=== PATIENT | male | born 1940 | race Caucasian/White ===

== ENCOUNTER → 2017-02-09 | Outpatient (CLI) | payer OTHER ==
[~2017-02-09] MED LIST: ALLEGRA180 MG PO; ALTACE10 M1 PO; AMIODARONE PO; APAP500; APAP500 PO; ASPIRIN EC81 M1 PO; ASPIRIN325 PO; CENTRUM SILVER1 EAC1 PO; FERRO-TIME325 MG PO; GENTEAL OP; LIPITOR20 MG PO; NEXIUM PO; OMEGA-31000 MG PO; PROTONIX40 M2 PO; ZINC CHELATE15 MG PO
== END ==
LOC: RAD 11:53
DX: I48.0 Paroxysmal atrial fibrillation (principal)

== ENCOUNTER → 2017-09-03 | Outpatient (CLI) | payer OTHER ==
[~2017-09-03] MED LIST changes: +ALLER-EASE180 MG PO; -ALTACE10 M1 PO; +ALTACE10 MG PO; -AMIODARONE PO; -CENTRUM SILVER1 EAC1 PO; +CENTRUM SILVER1 EAC4 PO; +FLEXERIL PO; -GENTEAL OP; +GENTEAL TEARS1 EACH OPHTHALMIC; +LIPITOR 20 MG T20 M1 PO; +LYRICA100 MG PO; +PACERONE 200 M200 M1 PO; +TRAMADOL 50 MG50 MG PO; +ZINC30 MG PO
== END ==
LOC: RAD 11:40
DX: Z01.818 Encounter for other preprocedural examination (principal); I48.0 Paroxysmal atrial fibrillation

== ENCOUNTER 2017-09-17 05:30 | Day surgery (SDC) | payer OTHER ==
[~2017-09-17] VITALS: Ht 195.6 cm; Wt 102.5 kg
--- NOTE | ~2017-09-17 | O ---
[facility] [place] [address] OPERATIVE REPORT Name: THAD NATHAN Room #: [facility] Selene#: [id number] Admission: 09/17/17 Attend Phys: Sergio Salvador Discharge: 09/17/17 Date of : 36 Report #: [id number] THIS REPORT FOR: //name// CC: Edgardo Lopez DATE OF SERVICE: 09/17/2017 PREOPERATIVE DIAGNOSES: Left shoulder pain, massive rotator cuff tear, impingement syndrome, long head of biceps tendon subluxation. POSTOPERATIVE DIAGNOSES: Left shoulder massive rotator cuff tear, impingement syndrome, long head of biceps tendon tear and subluxation, complex labral tear, glenohumeral joint chondromalacia, impingement syndrome, subacromial bursitis. PROCEDURE PERFORMED: Left shoulder arthroscopy, massive rotator cuff repair, subacromial decompression, arthroscopic proximal biceps tenodesis, and extensive debridement. SURGEON: Sergio Lopez MD TRAFFIC CIRCUIT ENGINEER: Maris Cervantes/Maris Power PA-C, recent name change. FLUIDS: 600 mL crystalloid. ESTIMATED BLOOD LOSS: 5 mL. DESCRIPTION OF PROCEDURE: After proper identification of the patient and operative site in preoperative holding area, the operative site was signed by myself. Prophylactic antibiotics given. The patient discussed the risks, benefits, alternatives and potential complications of an interscalene block with anesthesia. After this discussion, he wished to proceed and Anesthesia performed an ultrasound interscalene block. After this was performed, he was brought back to the operative suite after induction of satisfactory general endotracheal anesthesia, left shoulder was examined. It was stable throughout full arc of motion comparable to the preoperative assessment. The patient was then carefully positioned in the right lateral decubitus position with beanbag and axillary roll utilized to support the torso. The left shoulder was sterilely prepped and draped in usual manner and placed in 10 pounds balanced arthroscopic suspension. Posterior portal was established, joint was inflated with an arthroscopic pump set at 40 mmHg. Anterior superior portal was then created using a spinal needle for localization. There was a long head biceps tendon tearing and subluxation medially, there was an upper border tear of the subscapularis. The frayed portion of the subscapularis was debrided and the remaining more inferior portion was intact, but for the frayed subscapularis, demonstrated no quality tissue to repair. Complex labral tear of the posterior [address] [address] OPERATIVE REPORT Name: THAD NATHAN Payam Room #: [facility] Selene#: [id number] Admission: 09/17/17 Attend Phys: Sergio Salvador Discharge: 09/17/17 Date of : 38 Report #: [id number] superior, anterior superior extending into the more posterior inferior quadrants were noted. These were debrided with a motorized shaver back to a stable peripheral rim. Tendon grafting stitch was placed on the long head of biceps tendon that was released off the superior labrum and remaining frayed labrum was carefully debrided. There were degenerative changes noted along the more inferior aspect of the glenohumeral joint with spurring and chondral loss noted inferiorly. There was also evidence of rotator cuff tear involving the entire supraspinatus extending back into the infraspinatus in more of a longitudinal type split. At this point, the arthroscope was introduced into more of the subacromial space. Additional anterolateral and posterolateral portals were established and on examination of the rotator cuff tear, the patient had retracted L-shaped tear with longitudinal extension into the infraspinatus. The more posterior aspect of this tear could be reduced, but anteriorly, he had significant tightness requiring an anterior interval slide. Capsule was released along the articular surface of the cuff and any adhesed thickened bursal tissue was released superiorly. Thickened subacromial bursa was noted, this was resected to aid in visualization purposes. There was fraying on the undersurface of the coracoacromial arch and the prominence to the anterolateral acromion was removed with a motorized bur completing the subacromial decompression. The CA ligament was left intact, but just released off the bony edge. After release of the more anterior interval type tissues, the anterior leading edge of the supraspinatus could be brought back down. Greater tuberosity was prepared with a sharper end curette and motorized shaver. An additional portal off lateral border of the acromion was planned and created. Frayed portion of the cuff was carefully debrided. At this point, two 4.75 mm SwiveLock anchors were inserted off the articular margin along the more medial aspect of the tuberosity. Suture limbs were passed in more of margin convergence manner within the infraspinatus-type tear and then in a horizontal mattress fashion as this extended into the supraspinatus. This was not a water-tight closure with the anterior leading edge, the supraspinatus having been released into the rotator interval as well as the superior aspect of the subscapularis. Once these sutures were tied, an additional 4.75 mm SwiveLock anchor was used to create a double row of fixation as the more laterally based anchor, the repair construct was stable to probing. The biceps tendon was pulled out the anterolateral portal and a whipstitch was applied. It was tenodesed to the bicipital groove using Arthrex proximal biceps tenodesis button through a predrilled hole. The button engaged the cortex, was toggled, and the tendon laid nicely down within the groove. This was then tied using #2 FiberWire. Subacromial space thoroughly irrigated with normal saline, subacromial depression had been performed with a motorized bur. The portals were closed with simple nylon stitch. The patient will be immobilized in a sling and abduction pillow for 8 weeks postoperatively. A qualified recruiting assistant was utilized throughout the entire procedure to aid in patient limb [address] [address] OPERATIVE REPORT Name: THAD NATHAN Room #: [facility] Selene#: [id number] Admission: 09/17/17 Attend Phys: Sergio Salvador Discharge: 09/17/17 Date of : 38 Report #: [id number] positioning, visualization with the arthroscope, instrument and suture passage as well as closure and sling application. <ELECTRONICALLY SIGNED> By: Sergio Lopez MD 09/22/17 0742 1359 1745 Sergio Lopez MD /nt
[2017-09-17 10:46] VITALS: BP 166/63
[2017-09-17 14:19] VITALS: BP 166/63
== END 2017-09-17 15:00 | disposition home or self-care (01) ==
LOC: OR 05:30 → TBA 05:30 → OR 13:24
DX: M75.122 Complete rotator cuff tear or rupture of left shoulder, not specified as traumatic (principal); S43.432A Superior glenoid labrum lesion of left shoulder, initial encounter; S46.112A Strain of muscle, fascia and tendon of long head of biceps, left arm, initial encounter; M75.42 Impingement syndrome of left shoulder; M94.212 Chondromalacia, left shoulder; M75.52 Bursitis of left shoulder; I10 Essential (primary) hypertension; E78.00 Pure hypercholesterolemia, unspecified; I48.91 Unspecified atrial fibrillation; K21.9 Gastro-esophageal reflux disease without esophagitis; Z98.890 Other specified postprocedural states; Z98.41 Cataract extraction status, right eye; Z98.42 Cataract extraction status, left eye; Z96.1 Presence of intraocular lens; Z87.19 Personal history of other diseases of the digestive system; Z79.899 Other long term (current) drug therapy; Y92.89 Other specified places as the place of occurrence of the external cause; X58.XXXA Exposure to other specified factors, initial encounter; Y93.89 Activity, other specified; Y99.8 Other external cause status
CPT/HCPCS: 50010; 50101; 50172; 50386; 50404; 50597; 50935; 50950; 51038; 51445; 51847; 53610; 54170; 55430; 56527; 56530; 62110; 62900; 70005

== ENCOUNTER → 2017-10-25 | Outpatient (CLI) | payer OTHER | LOC: MRI 09:50 | DX: R60.0 Localized edema (principal); I48.91 Unspecified atrial fibrillation ==

== ENCOUNTER → 2018-04-07 | Outpatient (CLI) | payer OTHER | LOC: RAD 14:11 | DX: M47.814 Spondylosis without myelopathy or radiculopathy, thoracic region (principal); I10 Essential (primary) hypertension; I48.91 Unspecified atrial fibrillation; E78.00 Pure hypercholesterolemia, unspecified; Z79.899 Other long term (current) drug therapy ==

== ENCOUNTER 2018-11-02 15:45 | Inpatient (IN) | payer OTHER ==
[~2018-11-02] VITALS: Ht 195.6 cm; Wt 112.5 kg
--- NOTE | ~2018-11-02 | HC ---
[facility] [address] [place] [address] CONSULTATION Name: THAD NATHAN Room #: 218-P ADM IN M.R.#: [id number] Admission: 11/02/18 ������������������ Attend Phys: Keith Weaver Discharge: ������������������ Date of : 38 Report #: [id number] THIS REPORT FOR: //name// CC: Edgardo Persaud REASON FOR CONSULTATION: Shortness of breath. HISTORY OF PRESENT ILLNESS: The patient is an 78-year-old gentleman with history of paroxysmal atrial fibrillation with remote cardioversion, symptomatic multifocal premature ventricular complexes, both rhythm disturbances of which have been suppressed with low dose amiodarone. I saw the patient in the office about 2 weeks ago and he was doing well. No chest pain, shortness of breath, palpitations, near syncope or syncope. He called the office yesterday afternoon with complaints of exertional breathlessness and terrible fatigue. He thought that he was back in atrial fibrillation. He was seen in the office at which time a sinus rhythm was identified. He was severely orthostatic and was referred to the Emergency Department. His Emergency Room evaluation is notable for a white count of 52,000, severe anemia and a platelet count of 12. Hematologic evaluation is underway. He does report occasional minor nosebleeds over the past couple of days. No history of GI bleeding. He reports no reason specifically why he would be volume depleted or dehydrated. He has an intolerance to beta blockade. MEDICATIONS: Include amiodarone 200 mg daily, atorvastatin 40 mg daily, eyedrops, Flexeril, iron one tablet daily, Protonix 40 mg daily, Lyrica 100 mg twice daily and ramipril 10 mg daily. 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 SOCIAL HISTORY: She has never been a smoker. . FAMILY HISTORY: Unremarkable for premature coronary disease. Mother had diabetes. REVIEW OF SYSTEMS: All systems negative except as that noted above. PHYSICAL EXAMINATION: GENERAL: A pleasant gentleman who is alert and in no distress. VITAL SIGNS: Blood pressure is 140/60, heart rate of 90 and regular. He is afebrile, 6 feet 5 inches tall, 246 pounds. HEENT: There are neither xanthelasma, subcutaneous xanthomata, oral mucosal or digital cyanosis or kyphoscoliosis present. [facility] [address] [place] [address] CONSULTATION Name: THAD NATHAN Room #: 218-P [facility] IN [facility]#: [id number] Admission: 11/02/18 ������������������ Attend Phys: Keith Weaver Discharge: ������������������ Date of : 38 Report #: [id number] CHEST: Clear to auscultation and percussion. CARDIOVASCULAR: Regular rate and rhythm with normal S1, S2. ABDOMEN: Soft and nontender. EXTREMITIES: Without cyanosis, clubbing or edema. Radial pulses are 2+. NEUROLOGIC: He is alert with a nonfocal exam. LABORATORY DATA: Sodium 138, potassium 4.0, creatinine 2.3, uric acid 10.2, troponin 0, ProBNP of 538. Chest x-ray is normal. IMPRESSION: 1. Leukocytosis, thrombocytopenia, and severe anemia. 2. Dilated, nonischemic cardiomyopathy. 3. Aortic stenosis, mild. 4. Acute kidney injury. 5. Paroxysmal atrial fibrillation without recurrence. 6. History of gastrointestinal arteriovenous malformations with remote 8 unit gastrointestinal bleed. 7. Dyslipidemia. RECOMMENDATIONS: Hematology consultation; bone marrow biopsy. PLAN: 1. Abbreviated echo to exclude pericardial effusion. 2. Continue low dose amiodarone. 3. Hold ALANNA inhibitor for now. Thank you for asking me to participate in the patient's care. ��������������������������������������������� ���������������������������������������� By: ��������������������������������������������� 0752 1214 Lexa Mohan MD, [facility] /nt
[2018-11-02 15:51] VITALS: BP 118/52
[2018-11-02] MEDS ORDERED: PRESERVISION T1 EACH PO (16:10)
[2018-11-02] MEDS ORDERED: RAMIPRIL10 MG PO (16:12)
[2018-11-02 16:15] LABS: HEMATOCRIT 34.9 % (42.0-52.0); HEMOGLOBIN 11.5 gm/dL (14.0-18.0); MCH 31.3 pg (26.0-34.0); MCHC 32.8 g/dL (28.0-37.0); MCV 95.5 fL (80.0-100.0); RBC 3.66 mil/uL (4.50-6.00); RDW 16.8 % (10.5-14.5)
[2018-11-02 16:22] LABS: WBC 52.7 thou/uL (4.0-11.0)
[2018-11-02 16:26] LABS: ANION GAP 15 mmol/L (7-16); BUN 53 mg/dL (7-18); CALCIUM 8.9 mg/dL (8.5-10.1); CHLORIDE 100 mmol/L (98-107); CO2 20 mmol/L (21-32); CREATININE 2.3 mg/dL (0.7-1.3); GLUCOSE 130 mg/dL (74-106); POTASSIUM 4.1 mmol/L (3.5-5.1); SODIUM 135 mmol/L (136-145)
[2018-11-02 16:34] LABS: ALBUMIN 4.3 g/dL (3.4-5.0); SGOT 44 U/L (15-37); SGPT 28 U/L (30-65); TOTAL BILIRUBIN 1.7 mg/dL (<0.1-1.0); TOTAL PROTEIN 7.7 g/dL (6.4-8.2); TROPONIN-I <0.06 ng/mL (<0.06)
[2018-11-02 16:53] LABS: ABSOLUTE NEUTROPHILS 29.5 thou/uL (1.4-8.2); ANISOCYTOSIS 2+; ATYPICAL LYMPHS 2 %; ATYPICAL MONONUCLEARS 1 %; METAMYELOCYTES 3 %; MYELOCYTES 2 %; NUCLEATED RBCS 2 /100WBC; PROMYELOCYTES 1 %
[2018-11-02 16:54] LABS: LARGE PLATELETS SEVERAL
[2018-11-02 16:55] LABS: POLYCHROMASIA SLIGHT
[2018-11-02 16:57] LABS: PLATELET COUNT 13 thou/uL (150-400)
[2018-11-02 16:59] LABS: PHOSPHORUS 4.4 mg/dL (2.5-4.9)
[2018-11-02 17:19] LABS: APTT 36.2 Seconds (24.5-32.8); INR 1.2; PROTIME 12.6 Seconds (9.3-11.4)
[2018-11-02 17:32] LABS: D-DIMER 3.41 ug/mLFEU (0.19-0.50)
[2018-11-02 18:26] VITALS: BP 153/57
[2018-11-02 19:46] VITALS: BP 153/57
[2018-11-02 19:49] LABS: URINE BILIRUBIN NEGATIVE (Negative); URINE BLOOD 1+ (Negative); URINE CLARITY CLEAR; URINE COLOR YELLOW; URINE GLUCOSE-RANDOM* NEGATIVE (Negative); URINE KETONES NEGATIVE (Negative); URINE LEUKOCYTES-REFLEX NEGATIVE (Negative); URINE NITRITE-REFLEX NEGATIVE (Negative); URINE PROTEIN (DIPSTICK) NEGATIVE (Negative); URINE UROBILINOGEN 0.2 E.U./dl (0.2-1.0)
[2018-11-02 19:57] VITALS: BP 147/61
[2018-11-02 20:02] LABS: BACTERIA-REFLEX >30 Many /HPF (None Seen); CRYSTALS None Seen /LPF (None Seen); HYALINE CASTS 0-3 Few /LPF (None Seen); SQUAMOUS 0-3 Few /LPF (0-3)
[2018-11-02 20:03] LABS: URINE RBC 0-2 Rare /HPF (0-2); URINE WBC-REFLEX None Seen /HPF (0-5)
--- NOTE | 2018-11-03 00:10 | NUR ---
19:55>ADMITTED MED SURG PATIENT FROM ER AN 78 Y/M WITH COMPLAINT OF WEAKNESS, DIZZINESS AND SOA WHICH ALL BEGAN 3-4 DAYS AGO AND SINCE HAVE PERSISTED CONSTANTLY. HE ALSO COMPLAINED OF DECREASED APPETITE AND HAD 2X NOSEBLEED WITHIN THE LAST SEVERAL DAYS BUT BOTH HAVE RESOLVED. DENIES FEVER, CHILLS, COUGH, N/V/D. PT VERBALIZED HX OF BILATERAL FOOT NEUROPATHY. ASSESSMENT DOCUMENTED. ADMISSION CARE DONE. DR DAS CALLED AND WAS ABLE TO TALK TO POPULATION HEALTH MANAGER RAUL, WITH ORDERS GIVEN AND CARRIED OUT. PATIENT IS FOR IR BONE MARROW BIOPSY IN AM. IV INCREASED FROM 100 ML/HR TO 150 ML/HOUR ORDERED. FF UP POC.
[2018-11-03 04:06] VITALS: BP 140/61
[2018-11-03 04:33] LABS: HEMOGLOBIN 9.6 gm/dL (14.0-18.0)
--- NOTE | 2018-11-03 04:34 | NUR ---
COORDINATED WITH GILMA OF RADIOLOGY(CT) AND ROBIN OF LAB REGARDING THE SCHEDULED IR BONE MARROW BIOPSY.
[2018-11-03 04:35] LABS: HEMATOCRIT 29.5 % (42.0-52.0); MCH 31.4 pg (26.0-34.0); MCHC 32.7 g/dL (28.0-37.0); RBC 3.07 mil/uL (4.50-6.00)
[2018-11-03 04:37] LABS: PLATELET COUNT 12 thou/uL (150-400); WBC 40.4 thou/uL (4.0-11.0)
[2018-11-03 04:51] LABS: ALBUMIN 3.3 g/dL (3.4-5.0); CREATININE 1.7 mg/dL (0.7-1.3); TOTAL BILIRUBIN 1.8 mg/dL (<0.1-1.0); TOTAL PROTEIN 5.8 g/dL (6.4-8.2); URIC ACID* 10.2 mg/dL (2.6-7.2)
[2018-11-03 06:46] LABS: ABSOLUTE NEUTROPHILS 20.2 thou/uL (1.4-8.2); METAMYELOCYTES 5 %; MYELOCYTES 6 %
[2018-11-03 06:51] LABS: ANISOCYTOSIS 1+; POLYCHROMASIA SLIGHT
[2018-11-03 06:53] LABS: NUCLEATED RBCS 2 /100WBC
[2018-11-03 06:54] LABS: IMMATURE MONONUCLEARS 1 %
[2018-11-03 08:00] VITALS: BP 141/65
--- NOTE | 2018-11-03 08:32 | EKG ---
[address] [employer] [place] [address] ELECTROCARDIOGRAM REPORT Name: LEE NATHANTreasure Hare Room #: 218-P ADM IN M.R.#: [id number] ������������������ Admission: 11/02/18 ������������������ Attend Phys: Keith Weaver Discharge: ������������������ Date of : 38 Report #: [id number] ����������������������������������������������������������������� [id number] THIS REPORT FOR: //name// [facility] ED Test Date: 2018-11-02 Test Time: 16:32:12 Pat Name: THAD NATHAN Department: Room: 218 Gender: M Behavioral Health Director: WG : 1940 Requested By: Rosy Singer Order Number: [id number] MD: Lexa Mohan Measurements Intervals [place] Rate: 89 P: 11 NV: 222 QRS: -93 QRSD: 181 T: 44 QT: 412 QTc: 502 Interpretive Statements Sinus rhythm Prolonged NV interval RBBB and LAFB Compared to ECG 03/09/2011 15:27:57 Left anterior fascicular block now present Right bundle-branch block now present Electronically Signed On 11-03-2018 8:32:45 BRAIDING OPERATOR by Lexa Mohan [email or web address] ��������������������������������������������� <ELECTRONICALLY SIGNED> ���������������������������������������� By: Lexa Mohan MD, [facility] ��������������������������������������������� 11/03/18 0832 1632 1632 Lexa Mohan MD, [facility] /EPI
--- NOTE | 2018-11-03 10:05 | 2DMMODE ---
[address] [address] 2 D/M-MODE ECHOCARDIOGRAM Name: THAD NATHAN Room #: 218-P ADM IN M.R.#: [id number] ������������� Admission: 11/02/18 ������������� Attend Phys: Edgardo Haile Discharge: ��� ������������� ��� Date of : 36 Date of Service: 11/03/18 1005 �� Report #: [id number] �������� ��������������������������������������������[id number] THIS REPORT FOR: //name// APPROVED REPORT Study performed: 11/03/2018 08:16:37 EXAM: Comprehensive 2D, Doppler, and color-flow Echocardiogram Patient Location: Bedside Room #: 218 Status: routine BSA: 2.48 HR: 84 bpm BP: 141/65 mmHg Other Information Study Quality: Good Risk Factors: Cardiac Risk Factors: Hyperlipidemia Indications Atrial Fibrillation Dizziness and Vertigo Dyspnea Hypertension/HDD R/O Pericardial Effusion Left Ventricle The left ventricle is normal size. Left ventricular systolic function is mild-moderately decreased. LVEF is 40-45%. Right Ventricle The right ventricle is normal size. Great Vessels IVC is normal in size and collapses >50% with inspiration. Pericardium There is no pericardial effusion. <Conclusion> Very limited, abbreviated study Left ventricular systolic function is mild-moderately decreased. [address] [address] 2 D/M-MODE ECHOCARDIOGRAM Name: THAD NATHAN Room #: 218-P ADM IN M.R.#: [id number] ������������� Admission: 11/02/18 ������������� Attend Phys: Edgardo Haile Discharge: ��� ������������� ��� Date of : 36 Date of Service: 11/03/181004 �� Report #: [id number] �������� ��������������������������������������������[id number] LVEF is 40-45%. There is no pericardial effusion. ��������������������������������������������� <ELECTRONICALLY SIGNED> ���������������������������������������� By: Lexa Mohan MD, FACC ��������������������������������������������� 11/03/181004 04 04 Lexa Mohan MD, FACC /INF
[2018-11-03 10:24] VITALS: BP 130/54
[2018-11-03 12:00] VITALS: BP 131/64
[2018-11-03 14:47] VITALS: BP 137/59; BP 148/61
[2018-11-03 17:16] LABS: HEMATOCRIT 31.7 % (42.0-52.0); HEMOGLOBIN 10.3 gm/dL (14.0-18.0); MCH 31.7 pg (26.0-34.0); MCHC 32.4 g/dL (28.0-37.0); MCV 97.8 fL (80.0-100.0); RBC 3.24 mil/uL (4.50-6.00); RDW 17.9 % (10.5-14.5)
[2018-11-03 17:20] LABS: WBC 57.4 thou/uL (4.0-11.0)
--- NOTE | 2018-11-03 17:37 | NUR ---
ASSUMED PATIENT CARE AT 0700. A/O X4. PLEASANT. HAD BONE MARROW IN AM TOLERTAED WELL. NOTED O2 SAT 90% ON RA 2L/NC APPLIED. PATIENT FAD ONE UNIT PLT TRANSFUTION, NO REACTION NOTED. PLT UP TO 32 AT 1700 ALSO [address]4. PAG[address] RESENDIZ. PATIENT STILL HAS SMALL AMOUNT NOSE BLEEDING.. VSS AFEBRILE. WILL KEEP MONITOR. NOT TOWARDS POC GOALS.
[2018-11-03 20:30] VITALS: BP 145/57
--- NOTE | 2018-11-04 01:05 | NUR ---
PATIENT ASSESSED AND IS ALERT X 4. SKIN WARM AND DRY. LUNGS CTA-DISM. LAYING IN BED AND THEN UP TO CHAIR. HAS HAD A SLIGHT NOSE BLEED THIS SHIFT. 02 AT 2LNC. 02 SAT 95% WITH CONT PULSE OXIMITER. BANDAIDE PRESENT ON LOWER BACK FROM BONE MARROW BX. HAS SOME SOA AND WEAKNESS.STAND BY ASSIST TO CHAIR. VOIDS PER URINAL. VOIDS ALOT ALL NIGHT. RESP EVEN AND UNLABORED. RIGHT AC IV SITE HEALTHY AT 80 CC HOUR . DENIES ANY PAIN. CONT PLAN NOF CARE AND MONITOR NOSE BLEED, DOES LOOK LIKE OLD BLOOD AT TIMES, NO BRIGHT BLEEDING NOTED ALL SHIFT. CONT PLAN OF CARE. HR 70. NO ANXIETY NOTED THIS SHIFT. FEELS BETTER AT TIMES.
--- NOTE | 2018-11-04 03:24 | NUR ---
PATIENT UP TO BATHROOM, HAD A LARGE BM. LOWER BACK HAS A SMALL AMOUNT EDEMA WHERE BONE MARROW BX WAS DONE, SLIGHT AMOUNT OF BLEEDING NOTED. CONT TO OBSERVE.
[2018-11-04 05:36] LABS: RBC 3.06 mil/uL (4.50-6.00)
[2018-11-04 05:39] LABS: HEMOGLOBIN 9.4 gm/dL (14.0-18.0); MCH 30.8 pg (26.0-34.0); MCHC 31.4 g/dL (28.0-37.0)
[2018-11-04 05:43] LABS: WBC 49.8 thou/uL (4.0-11.0)
[2018-11-04 05:48] LABS: CREATININE 1.6 mg/dL (0.7-1.3)
--- NOTE | 2018-11-04 05:55 | NUR ---
Critical lab called to dr Adan and received no new orders.
[2018-11-04 06:42] VITALS: BP 119/64
[2018-11-04 07:25] VITALS: BP 125/44
[2018-11-04 07:41] LABS: ABSOLUTE NEUTROPHILS 27.9 thou/uL (1.4-8.2); ANISOCYTOSIS 1+; ATYPICAL LYMPHS 2 %; METAMYELOCYTES 4 %; MYELOCYTES 3 %; NUCLEATED RBCS 1 /100WBC; POIKILOCYTOSIS 1+
[2018-11-04 07:42] LABS: OVALOCYTES OCCASIONAL; PLATELET ESTIMATE DECREASED; POLYCHROMASIA SLIGHT
[2018-11-04] MEDS ORDERED: SOLU-MEDRO125 MG/23 IV PUSH (11:27)
[2018-11-04] MEDS ORDERED: ALLOPURINOL 10100 M1 PO (11:28)
[2018-11-04 11:50] VITALS: BP 119/41
[2018-11-04 12:15] VITALS: BP 123/50; BP 129/45
--- NOTE | 2018-11-04 12:33 | H ---
[facility] [address] [place] [address] HISTORY AND PHYSICAL Name: THAD NATHAN Room #: 218-P ADM IN M.R.#: [id number] Admission: 11/02/18 ������������������ Attend Phys: Keith Weaver Discharge: ������������������ Date of : 36 Report #: [id number] THIS REPORT FOR: //name// CC: Edgardo Persaud CHIEF COMPLAINT: Weakness and nosebleed. HISTORY OF PRESENT ILLNESS: The patient is an 78-year-old gentleman who was admitted through the Emergency Room with a 3-4 day history of epistaxis and weakness. His symptoms began over the weekend when he had 2 nosebleeds. He treated these at home, but then developed some symptoms of weakness. He apparently saw Dr. Mohan earlier in the week and was then referred to the ER as his symptoms continued. This seemed to be a sudden onset and initial evaluation through ER via lab work has revealed a white count of 50,000 with platelets less than 10,000. He has been admitted for hematologic workup. PAST MEDICAL HISTORY: Hypertension, peripheral neuropathy, atrial fibrillation, dyslipidemia, GERD. PAST SURGICAL HISTORY: He has had some lumbar spine surgery, knee surgery, he has had GI bleed in 2010 with endoscopies and no definitive source. FAMILY HISTORY: Noncontributory. SOCIAL HISTORY: He is , lives at home. No chronic alcohol or tobacco use. ALLERGIES: BACITRACIN, POLYMYXIN, BETA BLOCKERS. MEDICATIONS: Multivitamin, ramipril, Protonix, iron, amiodarone, Lyrica, Flexeril, Lori, Lipitor. REVIEW OF SYSTEMS: He denies headache, chest pain, shortness of breath, abdominal pain, nausea, vomiting, diarrhea, constipation, dysuria, syncope or fall. PHYSICAL EXAMINATION: VITAL SIGNS: Temperature 36.7, pulse 86, respirations 16, blood pressure 130/54, O2 sat 85% on room air, but 97% on 2 liters. GENERAL: He is awake and alert, lying in bed, in no distress. HEAD AND NECK: Unremarkable. LUNGS: Clear. HEART: Regular. ABDOMEN: Soft, normoactive bowel sounds. EXTREMITIES: No edema. [facility] [address] [place] [address] HISTORY AND PHYSICAL Name: THAD NATHAN Room #: 218-P [facility] IN ..#: [id number] Admission: 11/02/18 ������������������ Attend Phys: Keith Weaver Discharge: ������������������ Date of : 36 Report #: [id number] NEUROLOGIC: He is alert and oriented. LABORATORY DATA: White count is 40,000, hemoglobin 9.6, platelet 12,000. Creatinine 1.7. ASSESSMENT: 1. Acute leukocytosis. 2. Acute thrombocytopenia. 3. Anemia of chronic disease. 4. Acute kidney injury due to prerenal azotemia. PLAN: He has undergone bone marrow biopsy this morning and he has been assessed by the Hematology Service and Dr. George is following. The concern is that of an acute leukemia. Dr. Mohan is managing his cardiac issues; at this point it is supportive measures until bone marrow biopsy results are known. I have spoken with the patient and his at the bedside. ��������������������������������������������� <ELECTRONICALLY SIGNED> ���������������������������������������� By: Carl James MD ��������������������������������������������� 11/04/18 1233 1159 1212 Carl James MD /nt
[2018-11-04 13:46] VITALS: BP 121/50
--- NOTE | 2018-11-04 14:28 | NUR ---
Consult rec'd to initiate transfer to [facility] for new acute leukemia dx. Transfer RN contacted and referral info faxed. Acceptance confirmed per Terrell in the transfer center. Dr. Gurvinder Moreira is the accepting and has spoken to the attending. Pt and his updated at bedside and agreeable. [facility] ambulance being scheduled for 1530 pickup. Nursing given number to call report. Pt will be going to room [facility]. [facility] to contact [facility] at [phone] and fax request for his bone marrow bx slides and results to fax #[phone]. Terrell to pass info to their surgical path dept f/u followup. Chart copy and rad disc ready to be sent with the pt. Transfer form and kcf[facility] form on the chart. Care team updated.
[2018-11-06 09:08] LABS: HEMOGLOBIN 9.8 g/dL (13.0-17.7)
[2018-11-07 23:08] LABS: PLATELET COUNT 12 thou/uL (150-400)
[2018-11-08 08:12] LABS: M-SPIKE Not Observed g/dL (Not Observed)
[2018-11-08 15:08] LABS: HEMATOLOGY COMMENTS Note: (())
--- NOTE | 2018-11-08 15:26 | D ---
[facility] [place] [address] DISCHARGE SUMMARY Name: THAD NATHAN Room #: 218-P [facility] IN M.R.#: [id number] Admission: 11/02/18 ������������������ Attend Phys: Keith Weaver Discharge: 11/04/18 ������������������ Date of : 36 Report #: [id number] THIS REPORT FOR: //name// CC: [facility] DATE OF SERVICE: 11/04/2018 FINAL DIAGNOSES: 1. Acute leukemia. 2. Thrombocytopenia. 3. Leukocytosis. 4. Anemia of chronic disease. 5. Acute hypoxic respiratory failure. PROCEDURES: Bone marrow biopsy. HOSPITAL COURSE: The patient was admitted with general weakness and epistaxis. He was found to have significant lab abnormalities including a white count in a 40,000-50,000 range and a platelet count of approximately 12,000. There was concern of an acute hematologic illness including an acute leukemia. The hematology service assessed him. A bone marrow biopsy was performed on 11/03/2018, but those results are still pending at the time of discharge. 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 I spoke with Dr. George regarding his situation and he recommended transferring to a higher level of care with leukemia expertise. Venous Doppler ultrasound of the extremities was negative and a CT of the chest was negative for PE. Abdominal ultrasound revealed splenomegaly. He received 2 units of platelet transfusion. DISPOSITION: He will be transferred to [facility] under the care of Dr. Moreira on the hematology service. Current medications will continue and they will follow up on the bone marrow biopsy results for treatment options once the diagnosis is established and it is complete. ��������������������������������������������� <ELECTRONICALLY SIGNED> ���������������������������������������� By: Carl James MD ��������������������������������������������� 11/08/18 1526 1235 27 Carl James MD /nt
--- NOTE | 2018-11-10 11:07 | PATH ---
[facility] [place] [address] [address] PATHOLOGY RPT PROCEDURE Name: GURPREET NATHAN Room #: 218-P DIS IN M.R.#: [id number] ������������������ Admission: 11/02/18 ������������������ Date of : 36 Discharge: 11/04/18 Report #: [id number] Path Case #: [id number] [facility] Accession Number: [id number] . 01 Material submitted: . PART A: BM BX PART B: BM CLOT PART C: BM ASP PART D: PERIPH SMEAR PART E: BM FLOW . 01 Clinical history: . Rule out MDS 78-year-old man with leukocytosis, anemia and thrombocytopenia, rule out MDS. . 02 Diagnosis: Bone marrow aspirate, biopsy, cell clot and peripheral blood: - Peripheral blood with moderate normocytic anemia, severe thrombocytopenia and marked leukocytosis with absolute monocytosis, left shift immaturation and rare circulating blasts/blast equivalents. 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 (SEE COMMENT) (RHONDA:janet; 11/09/2018) MBSurinder/11/09/2018 . 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 Blast counts morphologically range from 17-25% with an overall percentage of 20%. 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 Hemophagocytosis is also noted. Correlation with clinical history (to exclude a disease-defining clinical history) and cytogenetics (to exclude a recurring cytogenetic abnormality) is required. The case is co-reviewed with Dr. Nicole Womack and Dr. Julio Johnson. The case was discussed preliminarily with Dr. Dimitri George on 11/04/18 in the morning and again on 11/07/18 midday. (CLW:janet; 11/09/2018) . 02 Electronically signed: . Milena Kirk MD, Pathologist NPI- [id number] . 01 Gross description: . A. Received in formalin labeled "Gurpreet Nathan, BM biopsy," are 2 needle cores of salcido bone measuring 0.5 and 1.1 cm in length and 0.2 cm in [address] [address] PATHOLOGY RPT PROCEDURE Name: GURPREET NTAHAN Room #: 218-P [facility] IN M.R.#: [id number] ������������������ Admission: 11/02/18 ������������������ Date of : 36 Discharge: 11/04/18 Report #: [id number] Path Case #: [id number] diameter. The specimen is submitted entirely in cassette A1, following decalcification. . B. Received in formalin labeled "Gurpreet Nathan clot," is an aggregate of dark salcido blood clot measuring 3.0 x 1.8 x 0.4 cm. The specimen is filtered and entirely submitted in cassette B1. (TSD; 11/03/2018) TOB/TOB . 02 Microscopic: . CBC Data (11/03/18): WBC 40,400 /uL, RBC 3.07, hemoglobin 9.6 g/dL, hematocrit 29.5%, MCV 96.0 fL, MCH 31.4 pg, MCHC 32.7 g/dL, RDW 17.0%, and platelet count 12,000 /uL. Manual white blood cell differential: segs 47%, bands 3%, lymphs 8%, monos 30%, metas 5%, tamica 6%, immature mononuclear cells 1%, and 2 NRBCs per 100 WBCs. . Peripheral Blood Smear: Cytomorphological examination of the Carlson's stained peripheral blood smear confirms the provided data. Red blood cells show moderate normocytic anemia with mild anisopoikilocytosis. No schistocytes or microspherocytes are seen. White blood cells are markedly increased in number. They are predominantly granulocytes and monocytes at various stages of maturation. Dyspoiesis is noted. Rare blasts without Debi rods are seen on scanning. Platelets are markedly decreased in number and mainly normal in morphology with rare larger platelets noted. Nucleated red blood cells are seen. . Aspirate Smears: Cytomorphological examination of the Carlson's stained aspirate smears show hypercellular spicules present. The overall cellularity is approximately 90%. The myeloid to erythroid ratio is 2-3:1. Myeloid maturation is abnormal with an increase in monocytes and immature cells. Additionally, there are hypogranular forms, variably sized cells and cytoplasmic vacuoles. Erythroid maturation is mildly dyserythropoietic with irregular nuclear contours and variably sized cells. In a 500 cell differential, there are 20% blasts/blast equivalents (promonocytes), 52% more differentiated myelomonocytic cells, 26% erythroid precursors, and 2% lymphocytes. The blast/blast equivalent percentages range from 17-25%. No Debi rods are seen. Hemophagocytosis is also noted. Megakaryocytes are proportional in number and both normal and abnormal in morphology with variable sizes and nuclar abnormalities including scattered micromegakaryocytes present. No lymphoid aggregates or markedly atypical lymphoid cells are seen. Rare plasma cells are without atypia. Iron stain of the aspirate smear shows 0/4+ iron positivity with spicules present. No ringed sideroblasts are identified. . Core Biopsy and Cell Clot: The decalcified bone marrow core biopsy is adequate. The bone marrow is [address] [address] PATHOLOGY RPT PROCEDURE Name: GURPREET NATHAN Room #: 218-P DIS IN M.R.#: [id number] ������������������ Admission: 11/02/18 ������������������ Date of : 36 Discharge: 11/04/18 Report #: [id number] Path Case #: [id number] hypercellular with an overall cellularity of 80-90%. The myeloid to erythroid ratio is 2-3:1. Myeloid and erythroid maturation are dyspoietic with an increase in immature-appearing cells. Megakaryocytes are normal in number and both normal and abnormal in morphology. No lymphoid aggregates or markedly atypical lymphoid cells are seen. Bony trabeculae and blood vessels are unremarkable. The cell clot has spicules present that are similar in cellularity and differential morphology as previously described. . Properly controlled special stains are performed. . Block A1: Iron - 2/4+ iron positivity Reticulin - No significant reticulin fibrosis . Block B1: Iron - 1/4+ iron positivity with spicules present . Flow Cytometry: Flow cytometric immunophenotypic analysis was performed at [email or web address]. The diagnosis is "1 - slight CD56 expression detected on myeloid and monocytic cells, 2 - no increased blasts detected." There are 4.1% lymphocytes. Of the lymphocytes, there are 69% T-cells with a CD4/CD8 ratio of 0.3 and no aberrant T-cell antigen expression and 10% polyclonal B-cells (kappa lambda ratio of 2.0). There are 12.9% monocytes with slight aberrant expression of CD56. There are 78% granulocytes with slight aberrant of CD56. There are 0.6% CD34 positive cells (myeloblasts) and 0.1% precursor B-cells. Please see separate flow cytometry report from [email or web address] ([id number]). . Cytogenetics Analysis: Cytogenetic chromosomal analysis is pending at [email or web address] ([id number]). . (CLW:janet; 11/09/2018) . 02 Pathologist provided ICD-10: C92.Z0, D64.9, D69.6, D72.829, D72.821 . 02 CPT . 550372, 310292, 782002, 057920, 564110, 709157, 891961, 764954, 756321 Specimen Comment: A courtesy copy of this report has been sent to Specimen Comment: [phone], , , . Specimen Comment: Report sent to ,DR DAS,DR AHN / DR QIU Specimen Comment: A duplicate report has been generated due to demographic updates. Performed at: [address] [address] PATHOLOGY RPT PROCEDURE Name: GURPREET NATHAN Room #: 218-P DIS IN M.R.#: [id number] ������������������ Admission: 11/02/18 ������������������ Date of : 36 Discharge: 11/04/18 Report #: [id number] Path Case #: [id number] [address] [facility] [address], [place], [place] [id number] MD Ed Reina MD Phone: [phone] Performed at: [address] [place] [id number] [address], [place] [id number] MD Lisandro Hdez MD Phone: [phone]
== END 2018-11-04 17:30 | disposition short-term general hospital (02) | DRG 834 ==
LOC: ER 15:45 → EROBS 18:09 → 2N 18:09
PROVIDERS: Internal Medicine; Internal Medicine Hematology & Oncology; Student in an Organized Health Care Education/Training Program; ADMIT Internal Medicine
PROC: 07DR3ZX Extraction of Iliac Bone Marrow, Percutaneous Approach, Diagnostic (ICD-10-PCS; principal; 2018-11-03)
PROC: 30233R1 Transfusion of Nonautologous Platelets into Peripheral Vein, Percutaneous Approach (ICD-10-PCS; principal; 2018-11-03)
DX: C92.00 Acute myeloblastic leukemia, not having achieved remission (principal); J96.01 Acute respiratory failure with hypoxia; N17.0 Acute kidney failure with tubular necrosis; I42.0 Dilated cardiomyopathy; I48.0 Paroxysmal atrial fibrillation; D69.6 Thrombocytopenia, unspecified; I10 Essential (primary) hypertension; G62.9 Polyneuropathy, unspecified; I48.91 Unspecified atrial fibrillation; E78.00 Pure hypercholesterolemia, unspecified; K21.9 Gastro-esophageal reflux disease without esophagitis; E78.5 Hyperlipidemia, unspecified; D63.8 Anemia in other chronic diseases classified elsewhere; I35.0 Nonrheumatic aortic (valve) stenosis; E79.0 Hyperuricemia without signs of inflammatory arthritis and tophaceous disease; Z98.42 Cataract extraction status, left eye; Z98.41 Cataract extraction status, right eye; Z88.1 Allergy status to other antibiotic agents; Z88.8 Allergy status to other drugs, medicaments and biological substances; Z82.49 Family history of ischemic heart disease and other diseases of the circulatory system
CPT/HCPCS: 10194